=== PATIENT | female | born 1995 | race Caucasian/White ===

== ENCOUNTER 2017-03-29 21:40 | Inpatient (IN) ==
[2017-03-29 22:24] LABS: Apearance,Urine CLEAR (Clear); Bilirubin,Urine Negative (Negative); Blood, Urine Small mg/dL (Negative); Glucose,Urine (UA) Negative (Negative); Ketones,Urine Negative (Negative); Mucus,Urine Occasional /LPF (Occasional); Nitrite,Urine Negative (Negative); Protein,Urine Negative; RBC,Urine 1 /HPF (0-4); Squamous Epithelial Cell,Urine Occasional /HPF (0-10); Urine Color Straw (Yellow); Urine Specific Gravity 1.009 (1.001-1.035); Urine Urobilinogen < 2.0 EU/DL (0.2-1.0); WBC,Urine 2 /HPF (0-6)
[2017-03-29] MEDS ORDERED: BUTORPHANOL 1 MG/ML VIAL IM PRN (23:55)
[2017-03-29] MEDS ORDERED: BUTORPHANOL 2 MG/ML VIAL IV PRN (23:58)
[2017-03-30] MEDS: LACTATED RINGERS 1,000 ML IV SCH ×2 (00:10→04:32)
[2017-03-30] MEDS: BUTORPHANOL 1 MG/ML VIAL IV PRN ×2 (00:20→07:48)
[2017-03-30] MEDS ORDERED: ONDANSETRON 4 MG/2 ML VIAL IV PRN (06:57)
[2017-03-30] MEDS ORDERED: ePHEDrine 50 MG/ML AMP IV PRN (07:00)
[2017-03-30] MEDS ORDERED: fentaNYL 2 MCG/ROPIV 0.2% EPID 150 ML EPIDURAL SCH (07:00)
[2017-03-30] MEDS ORDERED: OXYTOCIN/LR 20 UNIT/1,000 ML BAG IV SCH (07:00)
[2017-03-30] MEDS ORDERED: hydrOXYzine HCL 25 MG/1 ML VIAL IM PRN (07:00)
[2017-03-30] MEDS ORDERED: diphenhydrAMINE 50 MG/1 ML VIAL IV PRN ×2 (07:00)
[2017-03-30] MEDS ORDERED: PROMETHAZINE 25 MG/1 ML VIAL IM ONE (07:00)
[2017-03-30] MEDS ORDERED: FAMOTIDINE 20 MG/2 ML VIAL IV ONE (07:08)
[2017-03-30] MEDS ORDERED: CITRIC ACID/SODIUM CITRATE 30 ML UDCUP PO ONE (07:09)
[2017-03-30 07:52] LABS: Basophils % 0.2 % (0.0-0.8); Hematocrit 33.1 VOL% (35.7-47.0); Immature Granulocytes % 0.5 %; Immature Granulocytes Absolute 0.06 #; Lymphocytes # 1.3 10*3/uL (1.4-4.0); Lymphocytes % 10.7 % (21.3-54.2); Mean Corpuscular HGB Conc 33.2 GM/DL (32-36); Mean Corpuscular Hemoglobin 28 PG (27-34); Mean Corpuscular Volume 84.4 FL (87-102); Mean Platelet Volume 11.6 FL (9.6-12.0); Monocytes # 0.7 10*3/uL (0.11-0.8); Monocytes % 5.5 % (1.7-12.7); Neutrophils # 10.2 10*3/uL (1.4-7.4); Neutrophils % 83.1 % (38.7-73.9); Platelet Count 121 T/CUMM (130-400); Red Blood Count 3.92 MC/CUMM (3.8-5.5); Red Cell Distribution Width 14.5 % (9.3-17.3); White Blood Count 12.3 T/CUMM (4-12)
[2017-03-30 10:08] LABS: Apearance,Urine CLEAR (Clear); Bilirubin,Urine Negative (Negative); Blood, Urine Negative (Negative); Glucose,Urine (UA) Negative (Negative); Ketones,Urine 5 mg/dL (Negative); Nitrite,Urine Negative (Negative); Protein,Urine Negative; RBC,Urine <1 /HPF (0-4); Squamous Epithelial Cell,Urine Occasional /HPF (0-10); Urine Color Straw (Yellow); Urine Specific Gravity 1.004 (1.001-1.035); Urine Urobilinogen < 2.0 EU/DL (0.2-1.0); WBC,Urine <1 /HPF (0-6)
[2017-03-30] MEDS ORDERED: LIDOCAINE 1% 50 ML VIAL ONE (12:01)
[2017-03-30] MEDS ORDERED: miSOPROStol 200 MCG TABLET ONE (12:02)
[2017-03-31] MEDS: IBUPROFEN 800 MG TABLET PO PRN ×2 (00:12→13:32)
[2017-03-31 05:40] LABS: Basophils % 0.3 % (0.0-0.8); Eosinophils % 0.3 % (0.00-10.9); Hematocrit 28.4 VOL% (35.7-47.0); Hemoglobin 9.2 GM/DL (12.0-16.0); Immature Granulocytes % 0.5 %; Immature Granulocytes Absolute 0.06 #; Lymphocytes % 17.7 % (21.3-54.2); Mean Corpuscular HGB Conc 32.4 GM/DL (32-36); Mean Corpuscular Hemoglobin 28 PG (27-34); Mean Corpuscular Volume 85.5 FL (87-102); Mean Platelet Volume 11.9 FL (9.6-12.0); Monocytes # 0.8 10*3/uL (0.11-0.8); Monocytes % 7.2 % (1.7-12.7); Neutrophils # 8.4 10*3/uL (1.4-7.4); Platelet Count 128 T/CUMM (130-400); Red Blood Count 3.32 MC/CUMM (3.8-5.5); Red Cell Distribution Width 14.6 % (9.3-17.3); White Blood Count 11.3 T/CUMM (4-12)
[2017-03-31] MEDS: DOCUSATE SODIUM 100 MG CAPSULE PO SCH ×2 (08:40→21:01)
[2017-04-01] MEDS: IBUPROFEN 800 MG TABLET PO PRN ×2 (03:12→09:02)
[2017-04-01 07:21] VITALS: BP 111/76
[2017-04-01] MEDS ORDERED: DIPH/TET/ACEL PERT BOOSTER VACCINE 0.5 ML VIAL IM ONE (09:01)
[2017-04-01] MEDS: DOCUSATE SODIUM 100 MG CAPSULE PO SCH (09:02)
== END 2017-04-01 12:00 | disposition home or self-care (01) | DRG 560 ==
LOC: N.LDOUT 21:40 → N.LD 21:47 → N.OB 03-30 18:40
PROVIDERS: ADMIT Obstetrics & Gynecology; ATTEND Obstetrics & Gynecology

== ENCOUNTER 2020-12-22 11:34 | Inpatient (IN) ==
[2020-12-22 13:56] LABS: Bilirubin,Urine Negative (Negative); Blood, Urine Small mg/dL (Negative); Glucose,Urine (UA) Negative (Negative); Ketones,Urine 5 mg/dL (Negative); Mucus,Urine Occasional /LPF (Occasional); Nitrite,Urine Negative (Negative); Protein,Urine 100 MG/DL; RBC,Urine 15 /HPF (0-4); Squamous Epithelial Cell,Urine Occasional /HPF (0-10); Transitional Epi Cells,Urine Occasional /HPF (<1); Urine Appearance CLEAR (Clear); Urine Color Yellow (Yellow); Urine Urobilinogen < 2.0 EU/DL (0.2-1.0)
[2020-12-22] MEDS ORDERED: LACTATED RINGERS 1,000 ML IV ONE (14:27)
[2020-12-22] MEDS ORDERED: ONDANSETRON 4 MG/2 ML VIAL IV PRN (14:27)
[2020-12-22] MEDS ORDERED: OXYTOCIN/LR 20 UNIT/1,000 ML BAG IV SCH (14:30)
[2020-12-22 14:47] LABS: Basophils % 0.3 % (0.0-0.8); Eosinophils % 0.3 % (0.00-10.9); Hematocrit 26.7 VOL% (35.7-47.0); Immature Granulocytes % 1.5 %; Immature Granulocytes Absolute 0.12 #; Lymphocytes # 1.7 10*3/uL (1.4-4.0); Mean Corpuscular Volume 82.4 FL (87-102); Mean Platelet Volume 9.4 FL (9.6-12.0); Monocytes % 7.7 % (1.7-12.7); Neutrophils % 69.2 % (38.7-73.9); Platelet Count 256 T/CUMM (130-400); Red Blood Count 3.24 MC/CUMM (3.8-5.5); Red Cell Distribution Width 17.5 % (9.3-17.3); White Blood Count 7.8 T/CUMM (4-12)
[2020-12-22 15:09] LABS: Alanine Aminotransferase 12 U/L (13-56); Albumin 2.3 G/DL (3.4-5.0); Alkaline Phosphatase 173 U/L (45-117); Aspartate Amino Transferase 13 U/L (0-37); Bilirubin,Total < 0.39 MG/DL (0.20-1.00); Blood Urea Nitrogen 6 MG/DL (7-18); Carbon Dioxide 20 MMOL/L (21-32); Estimated Glom Filtration Rate 127 ML/MIN; Glucose 77 MG/DL (74-106); Osmolality,Calculated 271.7 MOS/KG (273-304); Potassium 3.3 MMOL/L (3.5-5.1); Sodium 138 MMOL/L (136-145); Total Protein 6.1 G/DL (6.4-8.2)
[2020-12-22] MEDS ORDERED: CITRIC ACID/SODIUM CITRATE 30 ML UDCUP PO ONE (15:47)
[2020-12-22] MEDS ORDERED: FAMOTIDINE 20 MG/2 ML VIAL IV ONE (15:47)
[2020-12-22] MEDS ORDERED: ePHEDrine 50 MG/ML VIAL IV PRN (15:48)
[2020-12-22] MEDS ORDERED: NALOXONE 0.4 MG/ML VIAL IV PRN (15:48)
[2020-12-22] MEDS ORDERED: fentaNYL 2 MCG/ROPIV 0.2% EPID 100 ML EPIDURAL SCH (16:00)
[2020-12-22] MEDS: LACTATED RINGERS 1,000 ML IV SCH ×2 (16:19→18:31)
[2020-12-22 19:04] LABS: Bilirubin,Urine Negative (Negative); Blood, Urine Moderate mg/dL (Negative); Glucose,Urine (UA) Negative (Negative); Ketones,Urine 5 mg/dL (Negative); Nitrite,Urine Negative (Negative); Protein,Urine 30 MG/DL; Squamous Epithelial Cell,Urine Occasional /HPF (0-10); Urine Appearance CLEAR (Clear); Urine Color Straw (Yellow); Urine Specific Gravity 1.003 (1.001-1.035); Urine Urobilinogen < 2.0 EU/DL (0.2-1.0)
[2020-12-22] MEDS ORDERED: OXYTOCIN/LR 20 UNIT/1,000 ML BAG IV ONE (21:58)
[2020-12-22] MEDS ORDERED: METHYLERGONOVINE 0.2 MG/1 ML AMP ONE (21:58)
[2020-12-22] MEDS ORDERED: TRANEXAMIC ACID 1,000 MG/10 ML VIAL ONE (21:58)
[2020-12-22] MEDS ORDERED: CARBOPROST TROMETHAMINE 250 MCG/ML AMP IM ONE (21:58)
[2020-12-22] MEDS ORDERED: miSOPROStoL 200 MCG TABLET ONE (21:58)
[2020-12-22] MEDS ORDERED: LANOLIN 50% CREAM 0.3 OZ TUBE TOP PRN (22:34)
[2020-12-22] MEDS ORDERED: DIPH/TET/ACEL PERT BOOSTER VACCINE 0.5 ML VIAL IM ONE (22:34)
[2020-12-22] MEDS ORDERED: HYDROCORTISONE 2.5% RECTAL CREAM 30 GM TUBE TOP PRN (22:34)
[2020-12-22] MEDS ORDERED: METHYLERGONOVINE 0.2 MG/1 ML AMP IM ONE (22:34)
[2020-12-22] MEDS ORDERED: ACETAMINOPHEN/CODEINE 300-30 MG TABLET PO PRN (22:34)
[2020-12-22] MEDS ORDERED: ACETAMINOPHEN 325 MG TABLET PO PRN (22:34)
[2020-12-22] MEDS ORDERED: BISACODYL 10 MG SUPP RECTAL PRN (22:34)
[2020-12-22] MEDS ORDERED: WITCH HAZEL PADS 100/JAR TOP PRN (22:34)
[2020-12-22] MEDS ORDERED: BENZOCAINE 20%/MENTHOL 0.5% SPRAY 56 GM CAN TOP PRN (22:34)
[2020-12-22 23:08] LABS: Cord Venous Blood PCO2 31.6 MMHG; Cord Venous Blood PO2 38.6 MMHG
[2020-12-23] MEDS: ACETAMINOPHEN/CODEINE 300-30 MG TABLET PO PRN ×4 (00:27→21:14)
[2020-12-23] MEDS: IBUPROFEN 800 MG TABLET PO PRN ×3 (02:02→21:15)
[2020-12-23 06:31] LABS: Basophils % 0.3 % (0.0-0.8); Eosinophils % 0.2 % (0.00-10.9); Hematocrit 32.2 VOL% (35.7-47.0); Hemoglobin 9.4 GM/DL (12.0-16.0); Immature Granulocytes % 0.8 %; Immature Granulocytes Absolute 0.11 #; Lymphocytes # 1.9 10*3/uL (1.4-4.0); Lymphocytes % 14.3 % (21.3-54.2); Mean Corpuscular HGB Conc 29.2 GM/DL (32-36); Mean Corpuscular Volume 82.6 FL (87-102); Monocytes % 7.1 % (1.7-12.7); Neutrophils % 77.3 % (38.7-73.9); Platelet Count 247 T/CUMM (130-400); Red Cell Distribution Width 17.4 % (9.3-17.3); White Blood Count 13.3 T/CUMM (4-12)
[2020-12-23] MEDS: DOCUSATE SODIUM 100 MG CAPSULE PO SCH ×2 (09:07→21:12)
[2020-12-23] MEDS: MULTIVITAMIN (PRENATAL) TABLET PO SCH (09:08)
[2020-12-23] MEDS: FERROUS SULFATE 325 MG TABLET PO SCH ×2 (09:08→21:12)
[2020-12-24] MEDS: ACETAMINOPHEN/CODEINE 300-30 MG TABLET PO PRN (07:48)
[2020-12-24] MEDS: FERROUS SULFATE 325 MG TABLET PO SCH (07:49)
[2020-12-24] MEDS: DOCUSATE SODIUM 100 MG CAPSULE PO SCH (07:49)
[2020-12-24] MEDS: MULTIVITAMIN (PRENATAL) TABLET PO SCH (07:49)
[2020-12-24 13:09] VITALS: BP 110/72
== END 2020-12-24 12:50 | disposition home or self-care (01) | DRG 560 ==
LOC: N.LDOUT 11:34 → N.LD 11:35 → N.OB 12-23 04:25
PROVIDERS: ADMIT Obstetrics & Gynecology; ATTEND Obstetrics & Gynecology